=== PATIENT | male | born 1985 | race Caucasian/White ===

== ENCOUNTER 2025-08-14 03:48 | Emergency (ER) | payer OTHER, SELFPAY ==
--- NOTE | ~2025-08-14 | CT_ITS ---
CLINICAL HISTORY: diffuse abd pain, worse periumbillical area CT abdomen and pelvis with contrast Comparison: CT - CT ABDOMEN PELVIS W IV CON - 08/14/2025 05:07 AM EST Findings: The lung bases are clear. Gallbladder and liver are within normal limits. Spleen, pancreas bilateral adrenal glands, and bilateral kidneys are within normal limits. No nephrolithiasis. Aorta is nonaneurysmal. No pelvic or abdominal free fluid. No retroperitoneal lymphadenopathy. No bowel obstruction, pneumoperitoneum, or pneumatosis. Appendix is within normal limits. Bladder and prostate are within normal limits. No acute osseous abnormality. IMPRESSION: No acute intra-abdominal or pelvic abnormality. This document has been electronically signed by: Brock Boyer MD on 08/14/2025 07:28:27
[2025-08-14 03:50] VITALS: BP 141/64; PULSE 66; RESP 20; TEMP 36.5; O2SAT 99; BMI 34.6
--- OUTSIDE RECORDS SUMMARY | 2025-08-14 04:16 | XMS_ITS | Data Portability ---
Author Organization [facility], [address] Address [address] [place] [address] Assessment No assessment recorded. Plan of Treatment Reminders Order Date Submit Date Provider Last Modified By Organization Details Last Modified Time Details Appointments None recorded. Lab rapid SARS CoV 2 Ag, QL IA, respiratory specimen 2022 023 vidhya _jose daniel read, [address] [place] [address], [id number], 3 20:09:35 rapid strep group A, throat 2022 023 [facility] _jose daniel rox, [address] [place] [address], [id number], 3 20:09:35 Referral None recorded. Procedures None recorded. Surgeries None recorded. Imaging None recorded. Medication Orders prednisone 20 mg tablet 2022 023 [facility] #[id number], [id number] [place], [address], 3 20:10:34 fexofenadin e-pseudoeph edrine ER 180 mg-240 mg tablet,ext. release 24 hr 2022 023 [facility] #[id number], [address] [place], [address], 3 20:10:35 Allergy Relief (fluticason e) 50 mcg/actuati on nasal spray,suspe nsion 2022 023 [facility] #[id number], [address] [facility] [place], [address], 20:10:34 Patient TargetsNo targets recorded. Patient Instructions Encounter Date Encounter Id Patient Instructions Last Modified By Organization Details Last Modified Time 12/20/2022 [id number] nausea and vomiting: care instructions [email or web address] Not available 12/20/2022 20:09:35 Try small amount s of clear liquids frequently. If vomiting occurs, wait 30-60 minutes before trying clear liquids again. Once you are able to tolerate clear liquids for at least 6 hours without vomiting, you can advance to a soft diet consisting of foods such as bananas, rice, applesauce, toast, crackers, and other foods rich in carbohydrates and low on fats and spices. If the diet is tolerated for 12-24 hours, you can slowly add other foods to your diet. If vomiting occurs, you should go back to clear liquids only and work your way back to a normal diet as outlined above. If much worse, you should seek treatment immediately. Not available 12/20/2022 19:05:03 Reason for Referral None Reported. Results Created Date Observation Date Name Description Value Unit Range Abnormal Flag Note LastModifiedBy Organization Detail LastModifiedTime 12/21/1912/20/2022 rapid SARS CoV 2 Ag, QL IA, respi rator y speci men Unknown Analyte Normal =Negat candelario Not Available alex mcadams [address] [place], [address], 12/20/2022 19:06:18 12/21/19 23 12/20/2022 rapid SARS CoV 2 Ag, QL IA, respi rator y speci men Unknown Analyte negati ve Not Available [facility] [address] [place], [place] [address], [address], 12/20/2022 19:06:18 12/21/19 23 12/20/2022 rapid strep group A, throa t Unknown Analyte Normal = Negati ve Not Available [facility] [address] [place], [address], 12/20/2022 19:06:24 12/21/1912/20/2022 rapid strep group A, throa t Unknown Analyte negati ve Not Available [address] [place], [address], 12/20/2022 19:06:24 Result Notes None recorded. Problems No Known Problems Medical Equipment None Reported. Allergies No known drug allergies Medications Name Sig Start Date Stop Date Status Note LastModified by Organization Details LastModified Time amoxicillin 500 mg capsule TAKE 2 CAPSULES BY MOUTH IMMEDIATE LY AND 1 EVERY 8 HOURS UNTIL FINISHED 12/20 completed Not Available Not Available Not Available clindamycin HCl 300 mg capsule TAKE 2 CAPSULES BY MOUTH RIGHT AWAY THEN 1 CAPSULE BY MOUTH EVERY 6 HOURS UNTIL FINISHED 12/20 completed Not Available Not Available Not Available prednisone 20 mg tablet Take 2 tablets every day by oral route in the morning for 4 days. 2022 active Not Available Not Available Not Avai lable naproxen sodium 550 mg tablet TAKE 1 TABLET BY MOUTH EVERY 1 HOURS NEEDED FOR PAIN 12/20 completed Not Available Not Available Not Available ibuprofen 600 mg tablet TAKE 1 TABLET BY MOUTH THREE TIMES A DAY FOR 7 DAYS 12/20 completed Not Available Not Available Not Available fexofenadin e-pseudoeph edrine ER 180 mg-240 mg tablet,ext. release 24 hr Take 1 tablet every day by oral route in the evening for 10 days. 2022 active Not Available Not Available Not Avai lable diclofenac 1 % topical gel APPLY 2 GRAMS TOPICALLY 4 TIMES A DAY FOR 10 DAYS 12/20 completed Not Available Not Available Not Available Allergy Relief (fluticason e) 50 mcg/actuati on nasal spray,suspe nsion [place] 1 spray every day by intranasa l route as needed for 30 days. 2022 active Not Available Not Available Not Avai lable Vitals Date Recorded Body height Oxygen saturation Oxygen saturation in Arterial blood by Pulse oximetry Pain severity - 0-10 verbal numeric rating [Score] - Reported Heart rate Respiratory rate Body temperature Systolic And Diastolic Provider Name and Address Organization Details Last Updated DateTime 180.34 cm 97 % 97 % 0 67 /min 20 /min 98.1 [degF] 118/79 mm[Hg] Pippa Costello PA - [facility] 19:08:03 Social History Question Answer Notes LastModified by Organizat ion Details LastModified Time Tobacco Smoking Status Current Every Day Smoker Pippa Costello mag PA - [facility] 12/20/2022 19:06:12 Which Illicit Or Recreational Drugs Have You Used? Marijuana Information not available 12/20/2022 How Much Tobacco Do You Smoke? 0.5 PPD Information not available 12/20/2022 Sex: Unknown Functional Status Question Answer Note LastModified by Organizat ion Details LastModified Time Do you use any illicit or recreational drugs? Yes Information not available 12/20/2022 What is your level of alcohol consumption? None Information not available 12/20/2022 Mental Status None recorded. Family History Relationship Description Onset Age of this Age Resolved Age Notes LastModified by Organization Details LastModified Time Father No current problems or disability Not available 12/20 19:06:00 Mother No current problems or disability Not available 12/20 19:06:00 Medical History No medical history recorded. Past Encounters Encounter ID Performer Location Encounter Start Date Encounter Closed Date Diagnosis/Indication Diagnosis SNOMED-CT Code Diagnosis ICD10 Code Diagnosis IMO Codes Diagnosis Note [id number] [facility] [address] [address] [place] [address] 10/03/2021 08:08:04 10/03/2021 10:57:36 [id number] [address] [address] [address] [place] [address] 11/17/2015 08:41:59 11/17/2015 10:44:33 [id number] [address] [place] [address] 03/14/2020 10:08:00 03/14/2020 10:50:10 [id number] [address] [place] [address] 07/01/2021 12:51:07 07/01/2021 15:49:37 [id number] [address] [place] [address] 04/02/2019 11:12:22 04/02/2019 12:07:44 [id number] Logan Donis NP [address] [place] [address] 12/20/2022 18:42:35 12/20/2022 20:13:41 Acute sinusitis 46760670 J01.90 Exposure t o SARS-CoV-2 071469121 Z20.822 Health Concerns Section Related Observation LastModified by Organization Detai ls LastModified Time None Recorded Concern Status LastModified by Organization Details LastModified Time None Recorded Advance Directives Directive None Recorded Payers Insurance Date Sequence Insurance Name Policy Number Policy Jean Covered Member ID Jean Member ID Guarantor Name 02/12/2023 1 [facility] [id number] Rupesh Harvey [id number] Randell Harvey Notes Date Note Type Note Provider Name and Address Organization Details Recorded Time 12/20/2022 text/html CongestionReport ed by Patientnasal congestion with post nasal drip x 3 days. denies any fever or fever with chills. no SOB or respiratory distress. Nausea UCReported by Patient Logan Donis NP [address] [place], [address], PA - [facility] 12/20/2022 20:11:29
[2025-08-14 04:31] LABS: MANUAL DIFF FLAG NO
[2025-08-14 04:32] LABS: Hematocrit 45.2 % (42.0-52.0); Hemoglobin 15.8 g/dl (14.0-18.0); Imm Gran Abs Auto 0.09 X10*3/uL (0.00-0.03); Imm Gran Pct Auto 0.7 % (0.0-0.4); Lymphocytes Absolute Auto 1.2 X10*3/uL (1.2-4.9); Mean Corpuscular HGB Conc 35.0 g/dl (31.0-36.0); Mean Corpuscular Hemoglobin 30.6 pg (27.0-33.0); Mean Corpuscular Volume 87.4 fL (80.0-98.0); NRBC Abs Auto 0.000 X10*3/uL (0.0-0.012); NRBC Pct Auto 0.0 /100WBC (0.0-0.2); Platelet Count 251 X10*3/uL (160-400); Red Blood Count 5.17 X10*6/uL (4.60-5.80); White Blood Count 13.5 X10*3/uL (4.8-10.8)
[2025-08-14 04:45] LABS: Alanine Aminotransferase 33 U/L (0-40); Albumin Level 4.7 g/dL (3.5-5.0); Alkaline Phosphatase 53 U/L (39-117); Anion Gap 14 (12-20); Aspartate Amino Transferase 32 U/L (5-37); Blood Urea Nitrogen 18 mg/dL (9-16); Calcium 9.2 mg/dL (8.4-10.2); Carbon Dioxide 16 mmol/L (22-29); Chloride 110 mmol/L (96-108); Creatinine Clr Calc Pharmacy 166.0; Estimated Glomerular Filt Rate > 60; Lipase 16 U/L (8-78); Potassium 4.3 mmol/L (3.3-5.1); Sodium 136 mmol/L (135-145); Total Protein 7.4 g/dL (6.5-8.0)
[2025-08-14 04:47] LABS: COVID-19 Test Negative (Negative); IDNOW Serial# 16C4AD1C
[2025-08-14 04:50] LABS: IDNOW Serial# 152EDE1D; Influenza B2 Negative (Negative)
--- NOTE | 2025-08-14 04:58 | ED_ITS ---
HPI - Abdominal Pain General Chief Complaint: Abdominal Pain Stated Complaint: Stomach Pain Time Seen by Provider: 08/14/25 04:44 Source: patient Mode of arrival: ambulatory Limitations: no limitations History of Present Illness ED Provider: Dr. Linda Cespedes HPI narrative: patient comes to the emergency room complaining of dental pain in the right maxillary side. Patient states that yesterday he felt a cyst on the gingiva on the maxillary side and when he ran his finger through it, it popped. Patient admits that he has poor dentition. Patient complaining of localized pain. Denies any further drainage. Also, patient complaining of periumbilical pain. Complaining of nausea vomiting. Denies any sick contacts. Denies any melena, denies flank pain, denies fever chills, denies hematuria or dysuria Related Data Previous Rx's ?Medication ?Instructions ?Recorded amoxicillin 500 mg tablet 500 mg PO TID 10 days #30 ta bs 08/14/25 ondansetron HCl 4 mg tablet 4 mg PO Q6H PRN nausea and 08/14/25 vomiting #14 tabs Allergies Allergy/AdvReac Type Severity Reaction Status Date / Time No Known Allergies (No Known Allergy Verified 08/14/25 03:56 Allergies*) Review of Systems Review of Systems Constitutional : No Weight loss, No Fever, No Chills, No Night Sweats, No Fatigue, No Malaise ENT/Mouth : complaining of dental pain in the left maxillary side, assist/ abscess popped yesterday,No Hearing loss, No Ear Pain, No Nasal Congestion, No Sinus Pain, No Hoarseness, No sore throat, No Rhinorrhea, No Swallowing Difficulty Eyes: No Eye Pain, No Swelling, No Redness, No Foreign Body, No Discharge, No Vision Changes Cardiovascular : No Chest Pain, No SOB, No Dyspnea on Exertion, No Orthopnea, No Edema, No Palpitations Respiratory : No Cough, No Sputum, No Wheezing, No Smoke Exposure, No Dyspnea Gastrointestinal : complaining of nausea vomiting and diarrhea, complaining of diffuse abdominal pain, worse in the epigastric area. Patient states that he feels very distended Genitourinary : no irregular bleeding, No Dysuria, No Urinary Frequency, No Hematuria, No Urinary Incontinence, No Urgency, No Flank Pain, No Urinary Flow Changes, No Hesitancy Musculoskeletal : No joint pain, No Myalgias, No Joint Swelling Skin : No Skin Lesions, No rash Neuro : No Weakness, No Numbness, No Paresthesias, No Loss of Consciousness, No Dizziness, No Headache Psych : No Anxiety/Panic, No Depression, No SI/HI/AH/VH, No Social Issues, Heme/Lymph: No Bruising, No Bleeding,No Lymphadenopathy Endocrine : No Polyuria, No Polydipsia, No Temperature Intolerance [facility] Social History Social History Smoked in Last 30 Days: Yes Use of substances other than those prescribed or required for medical reasons: Yes Substance Use Type: Marijuana Advance Directives: No Advance Directives Information Provided: Yes Physical Exam ED Exam Exam: Appearance: Alert. Oriented X3. No acute distress. well-appearing Eyes: Pupils equal, round and reactive to light. ENT: Pharynx normal. poor dentition, no abscess visualized in the mandible or maxillary gingival Neck: Normal inspection. Neck supple. No lymph nodes noted. No crepitus CVS: Normal heart rate and rhythm. Pulses normal. Normal S1 and S2 Respiratory: No respiratory distress. Breath sounds normal. No Wheezing. No rales Abdomen: Soft, slightly distended, tenderness in the periumbilical area, no rebound or guarding. Skin: Skin warm and dry. Normal skin color. Normal skin turgor. Extremities: No lower extremity edema. No Lacerations. No Rash Neuro: Oriented X 3. No motor deficit. No sensory deficit. Moving all extremities. No slurred speech. CN 2 through 12 grossly intact Psych: calm, cooperative, normal affect Vital Signs: Vital Signs - 24 hr 08/14/25 03:50 Temperature 97.7 F Pulse Rate 66 Respiratory Rate 20 Blood Pressure 141/64 H Pulse Oximetry 99 Oxygen Delivery Method Room Air BMI result Body Mass Index 34.6 Course Course Course Narrative: I discussed with the patient that he will need antibiotics for the dental pain that he has, what he popped could have been a dental abscess versus cyst patient receiving IV fluids, Zofran, Pepcid, all of patient's labs and imaging pending Medical Decision Making Medical Decision Making MDM Narrative: my interpretation of EKG: Normal sinus rhythm, heart rate 58, no ST segment depression or elevation, no T-wave inversion, QTC 412 my interpretation of labs: Patient's white blood cell count 13.5, no significant abnormality patient's hematology chemistry platelets. No significant abnormality in patient's chemistry, normal LFTs, normal lipase serology negative for COVID and influenza urinalysis negative for UTI CT scan: No acute abnormality Differential Diagnosis Differential Diagnoses: The differential diagnosis associated with the presentation includes ( dental abscess, gingivitis, gastritis, gastroenteritis, viral illness) Admission/Observation Consideration of admission/observation: Escalation of care including admission/observation considered ( given patient's multiple complaints and presentation, observation was considered) Lab Data MDM Lab Attestation statement: I reviewed the patient's lab results. 08/14/25 04:20 08/14/25 04:20 Labs: Lab Results 08/14/25 08/14/25 Range/Units 04:20 06:39 WBC 13.5 H (4.8-10.8) X10*3/uL RBC 5.17 (4.60-5.80) X10*6/uL Hgb 15.8 (14.0-18.0) g/dl Hct 45.2 (42.0-52.0) % MCV 87.4 (80.0-98.0) fL MCH 30.6 (27.0-33.0) pg MCHC 35.0 (31.0-36.0) g/dl RDW 12.6 (11.0-16.0) % Plt Count 251 (160-400) X10*3/uL MPV 12.4 (9.4-12.4) fL Immature Gran % (Auto) 0.7 H (0.0-0.4) % Neut % (Auto) 83.1 H (45-73) % Lymph % (Auto) 8.7 L (20-40) % Peach % (Auto) 5.7 (2-11) % Eos % (Auto) 1.3 (0-4) % Baso % (Auto) 0.5 (0-2) % Lymph # (Auto) 1.2 (1.2-4.9) X10*3/uL Peach # (Auto) 0.8 (0.1-1.2) X10*3/uL Eos # (Auto) 0.2 (0.0-0.4) X10*3/uL Baso # (Auto) 0.1 (0.0-0.2) X10*3/uL Abs Immat Gran (auto) 0.09 H (0.00-0.03) X10*3/uL Absolute Neuts (auto) 11.2 H (2.0-8.3) x10*3/uL Absolute Nucleated RBC 0.000 (0.0-0.012) X10*3/uL Nucleated RBC % (auto) 0.0 (0.0-0.2) /100WBC Sodium 136 (135-145) mmol/L Potassium 4.3 (3.3-5.1) mmol/L Chloride 110 H (96-108) mmol/L Carbon Dioxide 16 L (22-29) mmol/L Anion Gap 14 (12-20) BUN 18 H (9-16) mg/dL Creatinine 0.80 (0.5-1.4) mg/dL Estim Creat Clear Calc 166.0 Estimated GFR > 60 Random Glucose 118 H (60-115) mg/dL Calcium 9.2 (8.4-10.2) mg/dL Total Bilirubin 0.5 (0.0-1.0) mg/dL AST 32 (5-37) U/L ALT 33 (0-40) U/L Alkaline Phosphatase 53 (39-117) U/L Total Protein 7.4 (6.5-8.0) g/dL Albumin 4.7 (3.5-5.0) g/dL Lipase 16 (8-78) U/L Urine Color Yellow Urine Appearance Clear Urine pH 8.0 (5.0-9.0) Ur Specific [place] >= 1.030 H (1.005-1.025) Urine Protein Negative (Neg-Trace) mg/dL Urine Glucose (UA) Negative (Negative) mg/dL Urine Ketones Negative (Negative) mg/dL Urine Blood Negative (Negative) Urine Nitrite Negative (Negative) Ur Leukocyte Esterase Negative (Negative) COVID-19 (BARBARA) Negative (Negative) COVID-19 Clin Com See Note Influenza Type A (BALDOMERO) Negative (Negative) Influenza Type B (BALDOMERO) Negative (Negative) Influenza A & B Note See Note Independent Interpretation I performed an independent interpretation of an: CT Scan Radiology Impression Discussion of test interpretation with radiology: I have reviewed the radiologist's reading. Radiologist Impression: The lung bases are clear. Gallbladder and liver are within normal limits. Spleen, pancreas bilateral adrenal glands, and bilateral kidneys are within normal limits. No nephrolithiasis. Aorta is nonaneurysmal. No pelvic or abdominal free fluid. No retroperitoneal lymphadenopathy. No bowel obstruction, pneumoperitoneum, or pneumatosis. Appendix is within normal limits. Bladder and prostate are within normal limits. No acute osseous abnormality. IMPRESSION: No acute intra-abdominal or pelvic abnormality. Medications Administered Discontinued Medications Generic Name Dose Route Start Last Admin Trade Name Freq PRN Reason Stop Dose Admin Famotidine 20 mg 08/14/25 04:51 08/14/25 04:54 Famotidine/Pf 20 Mg/2 Ml Vial IVPUSH 08/14/25 04:52 20 mg ONCE ONE Administration Sodium Chloride 1,000 mls @ 999 mls/hr 08/14/25 04:50 08/14/25 06:57 Ns IVCONT 08/14/25 05:50 Infused .Q1H1M ONE Infusion Iohexol 100 ml 08/14/25 05:25 08/14/25 05:27 Iohexol 350 Mg/Ml 100 Ml Infus..Btl IV 08/14/25 05:26 100 ml ONCE ONE Administration Ondansetron HCl 4 mg 08/14/25 04:50 08/14/25 04:54 Ondansetron Hcl 4 Mg/2 Ml Vial IVPUSH 08/14/25 04:51 4 mg ONCE ONE Administration Critical Care Time Critical Care Time Critical Care Time: Yes Total Critical Care Time: 35 Attestation: I have personally provided critical care time. Time includes review of lab data, radiology results, discussion with consultants, and monitoring for potential decompensation. Intervention performed as documented. Discharge Plan Discharge Clinical Impression: Pain, dental, Abdominal pain, Nausea vomiting and diarrhea Patient Disposition: Home, Self-Care Instructions: Acute Nausea and Vomiting (ED), Abdominal Pain (ED), Toothache (ED) Additional Instructions: Please follow-up with your primary care physician tomorrow. If you have any worsening or new symptoms, please return to the emergency room or call 911 Prescriptions: New amoxicillin 500 mg tablet 500 mg PO TID 10 Days Qty: 30 0RF ondansetron HCl 4 mg tablet 4 mg PO Q6H PRN (Reason: nausea and vomiting) Qty: 14 0RF Print Language: Syrian
--- NOTE | 2025-08-14 05:01 | ECG_ITS ---
Test Reason : AP Blood Pressure : */* mmHG Vent. Rate : 58 BPM Atrial Rate : 58 BPM P-R Int : 132 ms QRS Dur : 86 ms QT Int : 420 ms P-R-T Axes : 64 48 46 degrees QTcB Int : 412 ms Sinus bradycardia Nonspecific T wave abnormality Abnormal ECG No previous ECGs available Referred By: Linda Cespedes Electronically Signed By: EDMUND AGUSTIN MD
[2025-08-14] MEDS: iohexoL 350 MG/ML 100 ML INFUS..BTL IV (05:27)
[2025-08-14 07:10] LABS: Appearance Urine Clear; Glucose Urine UA Negative (Negative); PH 8.0 (5.0-9.0); Specific Gravity - Urine >= 1.030 (1.005-1.025)
[2025-08-14 07:51] VITALS: BP 109/70; PULSE 84; RESP 17; TEMP -17.7; TEMP 0; O2SAT 95
== END 2025-08-14 07:52 | disposition home or self-care (01) ==
PROVIDERS: Emergency Provider Emergency Medicine
DX: K08.89 Other specified disorders of teeth and supporting structures (principal); R10.33 Periumbilical pain; R11.2 Nausea with vomiting, unspecified; R19.7 Diarrhea, unspecified
CPT/HCPCS: 74177; 80053; 81003; 83690; 85025; 87502; 87635; 93005; 96361; 96374; 96375; 99285; J1308; J2405; Q9967

== ENCOUNTER → 2025-08-14 04:50 | Outpatient (BNV) | payer OTHER, SELFPAY | PROVIDERS: Emergency Provider Emergency Medicine; Visit Provider Radiology Vascular & Interventional Radiology | DX: R10.84 Generalized abdominal pain (principal); R10.33 Periumbilical pain | CPT/HCPCS: 74177 ==

== ENCOUNTER → 2025-08-14 05:01 | Outpatient (BNV) | payer OTHER, SELFPAY | PROVIDERS: Emergency Provider Emergency Medicine; Visit Provider Internal Medicine Cardiovascular Disease | DX: R00.1 Bradycardia, unspecified (principal) | CPT/HCPCS: 93010 ==